=== PATIENT | male | born 1980 | race Caucasian/White ===

== ENCOUNTER 2023-09-03 00:52 | Day surgery (SDC) | payer OTHER, SELFPAY ==
[2023-06-14 12:02] VITALS: BMI 28.3
[2023-08-17 14:18] VITALS: BMI 28.3
[2023-09-03 07:04] VITALS: BP 128/77; PULSE 75; RESP 16; TEMP 36.2; O2SAT 97
[2023-09-03] MEDS: LACTATED RINGERS 1,000 ML 150 ML IV CONT (07:10)
--- NOTE | 2023-09-03 08:04 | P.PNAN_ITS ---
Anes - Initial Pre Proc Eval Procedure: Operation Date: 09/03/23 08:30 Proposed Procedures p Colonoscopy - Brett Ya MD Date/Time: 09/03/23 08:04 Surgeon: Brett Ya MD Pre Op Diagnosis: change in bowel habits Patient Data Age: 43 Gender: M Height: 1.85 m Weight: 94.6 kg Last Vital Signs Temp 97.2 F L 09/03/23 07:04 Pulse 75 09/03/23 07:04 Resp 16 09/03/23 07:04 BP 128/77 09/03/23 07:04 Pulse Ox 97 09/03/23 07:04 O2 Del Method Room Air 09/03/23 07:04 Allergies Allergy/AdvReac Type Severity Reaction Status Date / Time No Known Allergies Allergy Verified 09/03/23 07:03 Home Medications Medication Instructions Recorded Confirmed Type albuterol sulfate 90 mcg/actuation 1 puff inhalation PRN PRN 06/14/23 06/14/23 History aerosol inhaler Shortness Of Breath Or Wheezing fluticasone 250 mcg-salmeterol 50 1 inh inhalation DAILY 06/14/23 06/14/23 History mcg/dose blistr powdr for inhalation sildenafil 100 mg tablet 100 mg PO PRN PRN Erectile 06/14/23 06/14/23 History Dysfunction Patient hx anesthesia problems: none Family hx anesthesia problems: none Results Review: All pre-operative results and documents have been reviewed as part of the pre- operative evaluation. [facility] Family History Family History (Updated 05/24/14 @ 10:11 by DOCTOR UNKNOWN) Mother Hypertension Grandparent Carcinoma of colon Diabetes mellitus Social History Social History Smoking status: Never smoker Alcohol intake: current Alcohol use details: A COUPLE A YEAR Substance use: current Substance use type: marijuana Other substance usage details: 1-2 TIME PER WEEK Living arrangements: with family Spiritual care concerns: No Anes - Eval Final PreProcedure Day of Procedure 09/03/23 08:04 Patient weight: normal Heart: regular rate and rhythm Lungs: clear to auscultation Airway: Mallampati scale class II Neurological: alert and oriented Last oral intake: >/= 8 hours ASA classification: II Emergent: no Anesthetic plan: proceed Anesthesia type and monitoring: general GIVS and standard monitoring Results Review: All pre-operative results and documents have been reviewed as part of the pre- operative evaluation. Informed Consent: The patient's anesthetic plan and its attendant risks and benefits were discussed with the patient/family/POA. Questions were solicited and answers provided to the satisfaction of the patient/family/POA.
--- NOTE | 2023-09-03 08:27 | PM.HPGS ---
History of Present Illness History of Present Illness Consent: Risks, benefits, and alternatives have been discussed and questions answered. Patient agrees to proceed with procedure. Chief complaint: change in bowel habits Narrative: Mikie Nuno is a 43 year old male here for first colonoscopy, cousin with colon cancer in his 30's Review of Systems Review of Systems: All systems reviewed & are unremarkable except as noted in HPI and below PMFSH Past Medical History Medical History (Updated 09/03/23 @ 08:30 by Brett Ya MD) Colon cancer screening Family History Family History (Updated 05/24/14 @ 10:11 by DOCTOR UNKNOWN) Mother Hypertension Grandparent Carcinoma of colon Diabetes mellitus Social History Social History Smoking status: Never smoker Alcohol intake: current Alcohol use details: A COUPLE A YEAR Substance use: current Substance use type: marijuana Other substance usage details: 1-2 TIME PER WEEK Living arrangements: with family Spiritual care concerns: No Meds Home Medications and Allergies Home Medications Medication Instructions Recorded Confirmed Type albuterol sulfate 90 mcg/actuation 1 puff inhalation PRN PRN 06/14/23 06/14/23 History aerosol inhaler Shortness Of Breath Or Wheezing fluticasone 250 mcg-salmeterol 50 1 inh inhalation DAILY 06/14/23 06/14/23 History mcg/dose blistr powdr for inhalation sildenafil 100 mg tablet 100 mg PO PRN PRN Erectile 06/14/23 06/14/23 History Dysfunction Allergies Allergy/AdvReac Type Severity Reaction Status Date / Time No Known Allergies Allergy Verified 09/03/23 07:03 Vital Signs Vital Signs - 24 hr 09/03/23 07:04 Temperature 97.2 F L Pulse Rate 75 Respiratory Rate 16 Blood Pressure 128/77 Pulse Oximetry 97 Oxygen Delivery Room Air Exam Const: General: comfortable and no acute distress HENMT: Face/Nose/Sinus: Normal nares present Eyes: General: appearance normal, both eyes and all related structures Neck: Neck: no JVD Resp: Auscultation: clear to auscultation bilaterally Cardio: Rate: regular rate Rhythm: regular rhythm GI: Inspection: non-distended GI Palp: Yes Soft to palpation Skin: General skin exam: normal color Neuro: General: gait normal Speech: normal speech Extrem: General: normal to inspection Psych: Mental Status: mental status grossly normal Assessment and Plan Assessment and plan (1) Colon cancer screening: Code(s): Z12.11 - Encounter for screening for malignant neoplasm of colon Status: Acute Assessment and Plan: colonoscopy
[2023-09-03 08:45] VITALS: BP 103/61; PULSE 76; RESP 16; O2SAT 97
[2023-09-03 08:55] VITALS: BP 105/66; PULSE 65; RESP 16; O2SAT 97
[2023-09-03 09:00] VITALS: BP 104/64; PULSE 62; RESP 16; O2SAT 99
== END 2023-09-03 09:16 | disposition home or self-care (01) ==
PROVIDERS: PCP Emergency Medicine; Visit Provider Internal Medicine Gastroenterology
PROC: 0DJD8ZZ Inspection of Lower Intestinal Tract, Via Natural or Artificial Opening Endoscopic (ICD-10-PCS; CPT 45378; principal; 2023-09-03 08:30)
DX: Z12.11 Encounter for screening for malignant neoplasm of colon (principal); K57.30 Diverticulosis of large intestine without perforation or abscess without bleeding; K64.8 Other hemorrhoids; F12.90 Cannabis use, unspecified, uncomplicated; Z79.51 Long term (current) use of inhaled steroids
CPT/HCPCS: 45378; J2704; J7120